=== PATIENT | female | born 1945 | race Caucasian/White ===

== ENCOUNTER 2018-03-15 06:30 | Day surgery (SDC) | payer OTHER ==
[~2018-03-15 06:30] MED LIST: AVAPRO150 MG PO; CARTIA XT240 MG PO; CLONAZEPAM0.5 MG PO; LEVO-T25 MCG PO; LOVAZA1 GM PO
[2018-03-15] MEDS ORDERED: PERCOCET 5-3251 EACH PO (11:57)
== END 2018-03-15 14:40 | disposition home or self-care (01) ==
LOC: CIR.AMB 06:30
DX: D34 Benign neoplasm of thyroid gland (principal)